=== PATIENT | male | born 1970 | race Caucasian/White ===

== ENCOUNTER 2017-11-07 10:17 | Emergency (ER) | payer BC ==
[2017-11-07 10:32] VITALS: BP 167/99
--- NOTE | 2017-11-07 11:09 | ED Physician Documentation ---
General Adult - HISTORIAN Historian: patient - HPI Stated Complaint: EYE Chief Complaint: General Adult Onset: days ago (3) Timing: still present Severity: moderate Further Comments: yes (Pt is a 46 yo male with c/o foreign body in his R eye. Pt was using a grinding wheel to grind metal on , when the eye pain began. Pt initially thought he had welder plastic's burn, but sx did not improve. Pt was then able to see a small metal shard in his R cornea when looking in a mirror. R eye appears injected on presentation.) - ROS CONST: no problems EYES/ENT: other (foreign body R eye) CVS/RESP: none GI/: none MS/SKIN/LYMPH: none - PAST HX Past History: other (HLD, HTN) Allergies/Adverse Reactions: Allergies Allergy/AdvReac Type Severity Reaction Status Date / Time No Known Allergies Allergy Verified 11/07/17 10:33 Home Medications: Ambulatory Orders Medication Instructions Recorded Atenolol [Tenormin] 25 mg D 11/07/17 Lisinopril [Lisinopril] 10 mg D 11/07/17 - SOCIAL HX Smoking History: cigarettes - FAMILY HX Family History: No - VITAL SIGNS Vital Signs: Vital Signs Temp Pulse Resp BP Pulse Ox 97.4 F L 74 20 167/99 99 11/07/17 10:29 11/07/17 10:29 11/07/17 10:29 11/07/17 10:29 11/07/17 10:29 - REVIEWED ASSESSMENTS Nursing Assessment Reviewed: Yes Vitals Reviewed: Yes Progress - Progress Progress: Pt will f/u at [facility], [facility]. General Adult Physical Exam - PHYSICAL EXAM GENERAL APPEARANCE: mild distress EENT: other (R eye injected. There is a small metal shard with a slight rust ring at the 11 o'clock position in the R cornea.) NECK: normal inspection RESPIRATORY: no resp distress BACK: normal inspection SKIN: warm/dry, normal color EXTREMITIES: non-tender, normal range of motion NEURO: oriented X3, motor nml, sensation nml Discharge Clincal Impression: foreign body R cornea Referrals: Primary Doctor,No [Primary Care Provider] - Condition: Stable Disposition: 01 HOME, SELF-CARE Decision to Admit: NO Decision Time: 11:10
== END 2017-11-07 11:10 | disposition home or self-care (01) ==
LOC: ED 10:17
DX: T15.01XA Foreign body in cornea, right eye, initial encounter (principal); Y92.9 Unspecified place or not applicable
CPT/HCPCS: 99282